=== PATIENT | female | born 1955 | race African-American/Black ===

== ENCOUNTER 2019-04-29 15:51 | Emergency (ER) | payer MEDICAID, MEDICARE ==
[~2019-04-29] VITALS: Ht 167.6 cm; Wt 81.6 kg
[~2019-04-29 15:51] MED LIST: ALBU8.5H6 INH; ALBUTEROL INH; AMLO10TA8 PO; ASPI-482 PO; CHOL100017 PO; CHOL500045 PO; CYCL10TA2 PO; ESOM40CA PO; FLEXERIL PO; FLUT16SP2 NS; FURO20TA3 PO; LISI10TA2 PO; MONT10TA49 PO; NITR0.4T22 SL; OMEG10005 PO; OXYC-411 PO; OXYC20TA34 PO; Oxycodone Hcl/Acetaminophen PO; POTA20TA12 PO; POTASSIUM PO; SOLI10TA2 PO; SOLI5TAB2 PO; VALIUM10 MG PO; Warfarin Sodium MC
--- NOTE | 2019-04-29 16:49 | PHYS DOC ---
Adult General Chief Complaint Chief Complaint: MECHANICAL FALL HPI HPI Patient is a 64 year old female who presents with a fall that occurred around 2 AM this morning. The patient states she got up and tripped over a cord that was connected to the [employer]. The patient states that she is not sure whether not she lost consciousness. Denies any blood thinner use. The patient states that she has nausea, vomiting, headache, light sensitivity, left orbital swelling, left shoulder pain, left upper arm pain, left wrist pain, left knee pain. Review of Systems Review of Systems Constitutional: Denies fever or chills [] Eyes: Denies change in visual acuity, redness, or eye pain [] HENT: Denies nasal congestion or sore throat [] Respiratory: Denies cough or shortness of breath [] Cardiovascular: No additional information not addressed in HPI [] GI: Denies abdominal pain, bloody stools or diarrhea [] : Denies dysuria or hematuria [] Musculoskeletal: See HPI. Integument: Denies rash or skin lesions [] Neurologic: Denies headache, focal weakness or sensory changes [] Endocrine: Denies polyuria or polydipsia [] Complete systems were reviewed and found to be within normal limits, except as documented in this note. Current Medications Current Medications Current Medications Medications (Trade) Dose Ordered Sig/Melissa Start Time Stop Time Status Last Admin Dose Admin Acetaminophen/ Hydrocodone Bitart (Lortab 5/325) 1 tab 1X STAT 04/29/19 16:40 04/29/19 16:42 DC 04/29/19 16:51 1 TAB Allergies Allergies Allergies Coded Allergies Type Severity Reaction Last Updated Verified celecoxib Allergy Severe "PAIN IN HER SIDE" 12/21/13 Yes Uncoded Allergies Type Severity Reaction Last Updated Verified METAL Allergy Severe SKIN GROWS OVER METAL-CAUSES KELOID SCAR 12/20/13 Physical Exam Physical Exam Constitutional: Well developed, well nourished, no acute distress, non-toxic appearance. [] HENT: Normocephalic, traumatic, left orbital swelling, bilateral external ears normal, oropharynx moist, no oral exudates, nose normal. [] Eyes: PERRLA, EOMI, conjunctiva normal, no discharge. [] Neck: Normal range of motion, no tenderness, supple, no stridor. [] Cardiovascular:Heart rate regular rhythm, no murmur [] Lungs & Thorax: Bilateral breath sounds clear to auscultation [] Abdomen: Bowel sounds normal, soft, no tenderness, no masses, no pulsatile masses. [] Skin: Warm, dry, no erythema, no rash. [] Back: No tenderness, no CVA tenderness. [] Extremities: L shoulder tenderness, L humerus, L wrist, and L knee tenderness. No edema, ROM intact. Neurologic: Alert and oriented X 3, normal motor function, normal sensory function, no focal deficits noted. [] Psychologic: Affect normal, judgement normal, mood normal. [] Current Patient Data Vital Signs Vital Signs Date Time Temp Pulse Resp B/P (MAP) Pulse Ox O2 Delivery O2 Flow Rate FiO2 04/29/19 16:59 97.8 74 16 180/77 (111) 98 Room Air 97.8 EKG EKG [] Radiology/Procedures Radiology/Procedures Preliminary of X-rays interpreted by Dr. Jon Knee: No acute changes Wrist: No acute changes Shoulder/Humerus: humeral head fracture. [][facility] [address] [facility] [place], [place] [id number] IMAGING REPORT Signed PATIENT: LUKASZ SERNA AACCOUNT: [id number] : 1955 LOCATION: ER AGE: 64 SEX: F EXAM STATUS: REG ER ORD. PHYSICIAN: JING WEEKS APRN REASON: fall, headache, left orbital swelling PROCEDURE: CT HEAD AND MAXILLOFACIAL WO Exam: CT head and maxillofacial without contrast INDICATION: Fall, headache, left orbital swelling TECHNIQUE: Sequential axial images through the head and maxillofacial were obtained without the administration of IV contrast. Comparisons: None FINDINGS: Head: No focal parenchymal lesion or hemorrhage is identified. There is no midline shift or sulcal effacement. No acute vascular territory infarction is identified. Kirby-white distinction is preserved. The ventricular system is within normal limits without compression hydrocephalus. The basal cisterns are well maintained. Face: Mild extra cranial soft tissue contusion in the scalp overlying the right frontal region. Globes and intraorbital contents are normal. Extensive scattered dental caries are noted. The visualized portions of the paranasal sinuses and mastoid air cells are well-pneumatized. No acute fractures. IMPRESSION: 1. Mild extra cranial soft tissue contusion in the scalp overlying the right frontal region. 2. No acute intracranial abnormality. 3. Extensive periodontal disease Exposure: One or more of the following in the visualized dose reduction techniques were utilized for this examination: 1. Automated exposure control 2. Adjustment of the MA and/or KV according to patient size Use of iterative of reconstructive technique Electronically signed by: Andrzej Restrepo MD (04/29/2019 5:21 PM) [facility] DICTATED and SIGNED BY: ANDRZEJ RESTREPO MD DATE: 04/29/19 172 Course & Med Decision Making Course & Med Decision Making Pertinent Labs and Imaging studies reviewed. (See chart for details) Will get imaging and give supportive care. Imaging shows humeral head fracture. Will have patient placed in sling and follow up with Orthopedics in 1 week. Dragon Disclaimer Dragon Disclaimer This electronic medical record was generated, in whole or in part, using a voice recognition dictation system. Departure Departure Impression: Primary Impression: Humeral head fracture Additional Impression: Fall Disposition: 01 HOME, SELF-CARE Condition: STABLE Referrals: AMISHA GARCIA (PCP) ELEANOR GILLESPIE MD Patient Instructions: Humerus Fracture, Treated with Immobilization Additional Instructions: Thank you for visiting [facility]. We appreciate you trusting us with your care. If any additional problems come up don't hesitate to return to visit us. Please follow up with your primary care provider so they can plan additional care if needed and know about the problem that you had. If symptoms worsen come back to the Emergency Department. Any concerning symptoms that start such as chest pain, shortness of air, weakness or numbness on one side of the body, running high fevers or any other concerning symptoms return to the ER. Scripts Ondansetron (ONDANSETRON ODT) 4 Mg Tab.rapdis 1 TAB PO PRN Q6-8HRS PRN for NAUSEA, #16 TAB Prov: JING WEEKS APRN 04/29/19 Hydrocodone/Apap 5-325 (NORCO 5-325 TABLET) 1 Each Tablet 1 TAB PO PRN Q6HRS PRN for PAIN for 3 Days, #10 TAB 0 Refills Prov: JING WEEKS APRN 04/29/19 Problem Qualifiers Primary Impression: Humeral head fracture Encounter type: initial encounter Fracture type: closed Laterality: left Qualified Codes: S42.292A - Other displaced fracture of upper end of left humerus, initial encounter for closed fracture Additional Impression: Fall Encounter type: initial encounter Qualified Codes: W19.XXXA - Unspecified fall, initial encounter JING WEEKS APRN Apr 29, 2019 16:49
[2019-04-29] MEDS: HYDROcodone/APAP 5/325MG 1 TAB TABLET PO STA (16:51)
--- NOTE | 2019-04-29 17:24 | RAD ---
Exam: CT head and maxillofacial without contrast INDICATION: Fall, headache, left orbital swelling TECHNIQUE: Sequential axial images through the head and maxillofacial were obtained without the administration of IV contrast. Comparisons: None FINDINGS: Head: No focal parenchymal lesion or hemorrhage is identified. There is no midline shift or sulcal effacement. No acute vascular territory infarction is identified. Kirby-white distinction is preserved. The ventricular system is within normal limits without compression hydrocephalus. The basal cisterns are well maintained. Face: Mild extra cranial soft tissue contusion in the scalp overlying the right frontal region. Globes and intraorbital contents are normal. Extensive scattered dental caries are noted. The visualized portions of the paranasal sinuses and mastoid air cells are well-pneumatized. No acute fractures. IMPRESSION: 1. Mild extra cranial soft tissue contusion in the scalp overlying the right frontal region. 2. No acute intracranial abnormality. 3. Extensive periodontal disease Exposure: One or more of the following in the visualized dose reduction techniques were utilized for this examination: 1. Automated exposure control 2. Adjustment of the MA and/or KV according to patient size Use of iterative of reconstructive technique Electronically signed by: Andrzej Vickers MD (04/29/2019 5:21 PM) [facility]
[2019-04-29] MEDS ORDERED: ONDA4TAB12 PO (17:52)
[2019-04-29] MEDS ORDERED: HYDR-3164 PO (17:52)
[2019-04-29 18:00] VITALS: BP 143/67
--- NOTE | 2019-04-29 18:20 | RAD ---
Left shoulder 2 views 04/29/2019. Reason for exam: Pain after falling. No fracture or dislocation is seen. There are mild arthritic changes at the glenohumeral joint. IMPRESSION: No acute abnormality. CT left wrist 3 views: No fracture or dislocation is seen. There is no significant joint narrowing or foreign body. IMPRESSION: No acute abnormality. Left knee 3 views: Postoperative changes are seen from the replacement surgery. The prosthetic components appear well seated. No fracture or dislocation is seen. There is no obvious joint effusion. IMPRESSION: No acute abnormality. Left humerus 2 views: No fracture or dislocation is seen. There is no apparent foreign body. IMPRESSION: No acute abnormality. Electronically signed by: Chas Wilkerson Jr., MD (04/29/2019 6:17 PM) [facility]
== END 2019-04-29 18:05 | disposition home or self-care (01) ==
LOC: ER 15:51
DX: S42.292A Other displaced fracture of upper end of left humerus, initial encounter for closed fracture (principal); R51 Headache; M25.532 Pain in left wrist; M25.562 Pain in left knee; R11.2 Nausea with vomiting, unspecified; Z88.1 Allergy status to other antibiotic agents; W01.0XXA Fall on same level from slipping, tripping and stumbling without subsequent striking against object, initial encounter; Y93.89 Activity, other specified; Y92.89 Other specified places as the place of occurrence of the external cause; Y99.8 Other external cause status
CPT/HCPCS: 70450; 70486; 73030; 73060; 73110; 73562; 99284